=== PATIENT | male | born 1990 | race African-American/Black ===

== ENCOUNTER 2020-05-23 01:05 | Emergency (ER) | payer OTHER ==
[~2020-05-23] VITALS: Ht 177.8 cm; Wt 90.7 kg
[2020-05-23 01:07] VITALS: BP 124/85; Ht 177.8 cm; Wt 90.7 kg
== END 2020-05-23 01:38 ==
LOC: ED 01:05
DX: Z02.89 Encounter for other administrative examinations (principal)